=== PATIENT | female | born 1990 | race African-American/Black ===

== ENCOUNTER 2018-11-11 13:11 | Emergency (ER) | payer OTHER ==
[~2018-11-11] VITALS: Ht 157.5 cm; Wt 135.9 kg
[2018-11-11 13:46] VITALS: Ht 157.5 cm; Wt 135.9 kg
[2018-11-11 19:28] VITALS: BP 131/59
== END 2018-11-11 19:28 | disposition home or self-care (01) ==
LOC: D.ER 13:11 → D.MS 18:38 → D.ER 18:38
DX: M79.601 Pain in right arm (principal); V49.9XXA Car occupant (driver) (passenger) injured in unspecified traffic accident, initial encounter; M54.2 Cervicalgia